=== PATIENT | male | born 1940 | race Caucasian/White ===

== ENCOUNTER → 2016-09-11 | Outpatient (CLI) | payer OTHER ==
[~2016-09-11] MED LIST: ASPI81 PO; NITR.4 SL; PERC5TAB12 PO; PROS5TAB2 PO; PROT40TA PO; ROSU20 PO; TERA5CAP3 PO; VENL37.585 PO
[2016-09-11 10:37] LABS: BLOOD GAS CARBOXYHEMOGLOBIN 1.4 % (0-4); BLOOD GAS HCO3 27 mmol/L (22-26); BLOOD GAS METHEMOGLOBIN 1.1 % (0-2); BLOOD GAS O2 HGB SATURATION 94 % (90-100); BLOOD GAS OXYGEN CONTENT 18.2 Vol % (12.0-20.0); BLOOD GAS PCO2 43 mmHG (38-42); BLOOD GAS PO2 82 mmHG (61-120); BLOOD GAS TOTAL HGB 13.7 G/DL (12.0-16.0); CRITICAL VALUE NO; DRAW SITE RT RADIAL; FIO2 21 %; NUMBER OF ARTERIAL PUNCTURES 1; TEMP CORR TO 98.6; ULNAR PULSE PRESENT
[2016-09-11 10:38] LABS: STAT NO
--- NOTE | 2016-09-12 08:54 | RSPPFT ---
DATE OF PROCEDURE: 09/11/16 COMMENTS: Spirometry shows FVC of 3.9 at 111% of predicted, FEV1 of 2.3 at 86%, FEV1/FVC ratio is decreased. Flow is decreased at FEF 25, FEF 50, FEF 75 and FEF 25-75. There is no response after bronchodilator treatment. Lung volumes shows residual volume is normal. TLC is normal. Diffusion capacity is decreased. Flow volume loop indicates an obstructive pattern. Room air arterial blood gases show pH of 7.42, PCO2 of 43, PO2 of 82, BiCarb of 27, O2 Saturation at 98%. IMPRESSION: 1. Mild small airways obstructive lung disease. 2. No response after bronchodilator treatment. 3. Lung volumes are normal. 4. Decreased diffusion capacity. 5. Blood gases show normal oxygenation.
== END ==
LOC: PHRSP 10:06
PROVIDERS: ATTEND Specialist
DX: R06.00 Dyspnea, unspecified (principal)
CPT/HCPCS: 36600; 82805; 94060; 94726; 94729

== ENCOUNTER 2017-11-08 06:52 | Observation (INO) ==
[2017-11-08 07:11] LABS: Baso # (Auto) 0.1 th/mm3 (0.0-0.2); Baso % (Auto) 1.2 % (0.0-2.0); Eos # (Auto) 0.3 th/mm3 (0.0-0.4); Eos % (Auto) 3.4 % (0.0-4.0); Hematocrit 42.3 % (39.0-51.0); Hemoglobin 14.3 gm/dL (13.0-17.0); Lymph # (Auto) 1.6 th/mm3 (1.0-4.8); Mean Corpuscular HGB Conc 33.8 % (32.0-36.0); Mean Corpuscular Hemoglobin 32.8 pg (27.0-34.0); Mean Corpuscular Volume 97.3 fL (80.0-100.0); Mono # (Auto) 0.6 th/mm3 (0.0-0.9); Mono % (Auto) 7.2 % (0.0-8.0); Neut % (Auto) 69.2 % (16.0-70.0); Platelet Count 171 th/mm3 (150-450); Red Blood Count 4.35 mil/mm3 (4.50-5.90); Red Cell Distribution Width 12.6 % (11.6-17.2); White Blood Count 8.6 th/mm3 (4.0-11.0)
[2017-11-08 07:12] VITALS: O2SAT 97
--- NOTE | 2017-11-08 07:17 | ED ---
HPI General Chief Complaint: Chest Pain Stated Complaint: Lft shoulder pain going down arm Time Seen by Provider: 11/08/17 07:01 Source: patient, family, RN notes reviewed and old records reviewed Mode of arrival: ambulatory Limitations: no limitations History of Present Illness HPI narrative: 76-year-old male states that over the past couple days he has been feeling tired and run down and he developed pain in his chest that went down his left arm. He took an aspirin prior to arrival. He states he could not find his nitroglycerin. He states the pain is now resolved. He states Dr. Matthews is now his regroover. He states his last stress test he thinks was within the last year. He states he does have cardiac stents. He denies other concurrent complaints. Quality is pressure. Severity is currently resolved. He denies specific modifying factors. complaint: chest pain STEMI Alert: No Related Data Home Medications Medication Instructions Recorded Confirmed dabigatran etexilate [Pradaxa] 0 mg PO BID 11/08/17 finasteride 0 mg PO DAILY 11/08/17 pantoprazole 0 mg PO DAILY 11/08/17 rosuvastatin [Crestor] 0 mg PO DAILY 11/08/17 terazosin 0 mg PO DAILY 11/08/17 Allergies Allergy/AdvReac Type Severity Reaction Status Date / Time No Known Allergies Allergy Unverified 11/08/17 07:15 Review of Systems ROS: all other systems reviewed are negative [facility] Medical History Medical History Depression (Acute) Elevated cholesterol (Acute) GERD (gastroesophageal reflux disease) (Acute) Surgical History Surgical History History of intravascular stent placement (Acute) History of prostate surgery (Acute) Hx of hernia repair (Acute) Social History Social History Substance History: No History of Abuse Smoking Status: Former smoker Tobacco Type: Cigarettes How Often Do You Have a Drink Containing Alcohol: Never Immunization History Tetanus Immunization: Unsure Hx Influenza Vaccine This Season: Yes Exam Narrative Exam Narrative: GENERAL: 76-year-old male in no apparent distress SKIN: Focused skin assessment warm/dry. HEAD: Atraumatic. Normocephalic. EYES: Pupils equal and round. No scleral icterus. No injection or drainage. ENT: No nasal bleeding or discharge. Mucous membranes pink and moist. NECK: Trachea midline. No JVD. CARDIOVASCULAR: Regular rate and rhythm. RESPIRATORY: No accessory muscle use. Clear to auscultation. Breath sounds equal bilaterally. GASTROINTESTINAL: Abdomen soft, non-tender, nondistended. Hepatic and splenic margins not palpable. MUSCULOSKELETAL: No obvious deformities. No clubbing. No cyanosis. No edema. NEUROLOGICAL: Awake and alert. No obvious cranial nerve deficits. Motor grossly within normal limits. Normal speech. PSYCHIATRIC: Appropriate mood and affect; insight and judgment normal. Course Reevaluation(s) Reevaluation #1: patient updated and agrees to admit Consultations Consultation #1: dr lopez requests to discuss with cardiology Consultation #2: dr owen states ok to admit to [facility], last stress wa 1.5 years ago Consultation #3: dr lopez agrees to admit Initial Documented Vital Signs Pulse Rate 84 11/08/17 07:10 Pulse Oximetry 97 11/08/17 07:10 Last Documented Vital Signs Pulse Rate 59 L 11/08/17 08:01 Respiratory Rate 16 11/08/17 08:01 Blood Pressure 144/77 H 11/08/17 08:01 Pulse Oximetry 97 11/08/17 08:01 Medical Decision Making [facility] Narrative Medical decision making narrative: We will check blood work, chest x-ray, EKG and reevaluate. Currently pain-free Medical Screen Exam Complete: Yes Emergency Medical Condition: Yes Differential Diagnosis Differential Diagnosis: Cardiac, gastritis, musculoskeletal Medical Records Medical records reviewed: Yes I reviewed the patient's medical records. 2007 right coronary stent times [address] nicole Lab Data Lab results reviewed: Yes I reviewed the patient's lab results. Result diagrams: 11/08/17 06:55 11/08/17 06:55 Lab Results 11/08/17 11/08/17 11/08/17 Range/Units 06:55 06:55 06:55 CBC w Diff Auto diff final WBC 8.6 (4.0-11.0) th/mm3 RBC 4.35 L (4.50-5.90) mil/mm3 Hgb 14.3 (13.0-17.0) gm/dL Hct 42.3 (39.0-51.0) % MCV 97.3 (80.0-100.0) fL MCH 32.8 (27.0-34.0) pg MCHC 33.8 (32.0-36.0) % RDW 12.6 (11.6-17.2) % Plt Count 171 (150-450) th/mm3 MPV 8.0 (7.0-11.0) fL Neut % (Auto) 69.2 (16.0-70.0) % Lymph % (Auto) 19.0 (9.0-44.0) % [place] % (Auto) 7.2 (0.0-8.0) % Eos % (Auto) 3.4 (0.0-4.0) % Baso % (Auto) 1.2 (0.0-2.0) % Neut # (Auto) 6.0 (1.8-7.7) th/mm3 Lymph # (Auto) 1.6 (1.0-4.8) th/mm3 [place] # (Auto) 0.6 (0.0-0.9) th/mm3 Eos # (Auto) 0.3 (0.0-0.4) th/mm3 Baso # (Auto) 0.1 (0.0-0.2) th/mm3 WBC Differential . Differential Comment . Sodium 137 (136-145) meq/L Potassium 3.8 (3.5-5.1) meq/L Chloride 103 (98-107) meq/L Carbon Dioxide 27.6 (21.0-32.0) meq/L Anion Gap 6 (5-15) meq/L BUN 14 (7-18) mg/dL Creatinine 1.30 (0.60-1.30) mg/dL Estimated GFR 54 L (>89) mL/min Random Glucose 124 H (74-106) mg/dL Calcium 8.4 L (8.5-10.1) mg/dL Magnesium 2.0 (1.5-2.5) mg/dL Total Bilirubin 0.4 (0.2-1.0) mg/dL Direct Bilirubin 0.1 (0.0-0.2) mg/dL Indirect Bilirubin 0.3 (0.0-0.8) mg/dL AST 19 (15-37) U/L ALT 19 (12-78) U/L Alkaline Phosphatase 59 (45-117) U/L Total Creatine Kinase 99 (39-308) U/L Troponin I Less than 0.02 L (0.02-0.05) ng/mL Total Protein 7.7 (6.4-8.2) g/dL Albumin 3.9 (3.4-5.0) g/dL Imaging Data Attestation: I personally reviewed and interpreted this imaging study as follows : Radiologist's impression: Chest X-Ray 11/08/17 06:59 CONCLUSION: Negative for an acute process. Discharge Plan Discharge Disposition Patient Disposition: 30 Still Patient Discharge Details Diagnosis: Chest pain Physicians Team ED Provider: Gisselle Banegas Primary Care Provider: Do Constance Mann Attending Provider: Kenney Lopez Status ED Status: Admitted Observation Patient
[2017-11-08 07:21] LABS: Chloride 103 meq/L (98-107); Potassium 3.8 meq/L (3.5-5.1); Sodium 137 meq/L (136-145)
[2017-11-08 07:25] LABS: Calcium 8.4 mg/dL (8.5-10.1)
[2017-11-08 07:26] LABS: Anion Gap 6 meq/L (5-15); Blood Urea Nitrogen 14 mg/dL (7-18); Carbon Dioxide 27.6 meq/L (21.0-32.0); Glucose,Random 124 mg/dL (74-106)
[2017-11-08 07:29] LABS: Glomerular Filtration Rate 54 mL/min (>89)
[2017-11-08 07:34] LABS: Creatine Kinase 99 U/L (39-308)
--- NOTE | 2017-11-08 07:45 | XR ---
EXAM DATE: 11/08/2017 7:24 AM EDT AGE/SEX: 76 years / Male INDICATIONS: . Left side chest pain with left arm pain today CLINICAL DATA: This is the patient's initial encounter. Patient reports that signs and symptoms have been present for 1 day and indicates a pain score of 4/10. MEDICAL/SURGICAL HISTORY: Chronic obstructive pulmonary disease. . Cardiac stent COMPARISON: [facility] [place], CHEST PA & LAT, 04/17/2011. . FINDINGS: PA and lateral views of the chest demonstrate the lungs to be symmetrically aerated without evidence of mass, infiltrate or effusion. The cardiomediastinal contours are unremarkable. Degenerative change s about both AC joints. CONCLUSION: Negative for an acute process. Electronically signed by: Dion Cohn MD 11/08/2017 7:44 AM EDT
[2017-11-08 07:46] LABS: Albumin 3.9 g/dL (3.4-5.0)
[2017-11-08 07:51] LABS: Total Protein 7.7 g/dL (6.4-8.2)
[2017-11-08 08:02] VITALS: RESP 16
[2017-11-08] MEDS ORDERED: Morphine Inj 4 MG/ML Vial IV.PUSH PRN (08:17)
[2017-11-08] MEDS ORDERED: Acetaminophen 500 MG Tablet PO PRN (08:17)
[2017-11-08] MEDS ORDERED: Aspirin 325 MG Tablet PO SCH (09:00)
[2017-11-08] MEDS ORDERED: Pantoprazole Sodium 20 MG DR Tablet PO SCH (09:00)
[2017-11-08] MEDS ORDERED: FINASTERIDE 1 MG PO SCH (09:00)
--- NOTE | 2017-11-08 11:14 | P.HP ---
History of Present Illness Primary Care Physician: Do Constance Mann Chief Complaint: Left arm pain History of Present Illness: This is a very pleasant 76-year-old male patient with a known medical history of GERD, hypertension and hyperlipidemia presented to the ED with complaints of left arm pain. Patient states that this morning when he was using the bathroom he was sitting on the toilet and developed a left arm pain that radiated up his left neck, was characteristically sharp in nature and lasted roughly 40 seconds and went away on its own without any known aggravating or alleviating factors. He does admit to associated hand numbness and tingling. He denies any associated nausea, vomiting, sweating or shortness of breath. He denies ever having this type of sensation before. All symptoms have resolved upon assessment today. He does state he follows with Dr. Rojas, cardiology in the outpatient setting. He does state that his last stress test was 2-1/2 months ago which was reportedly negative. He does have history of CO and cardiac stents, these were placed over 5 years ago. He also had an echocardiogram 2 months ago which was reportedly negative as well. Patient states that his GERD symptoms have been worsening over the past couple weeks. He does take Protonix scheduled outpatient. He admits to increasing belching and flatus. Denies any new changes to his medicines. He denies any recent illness including fever, chills, cough, headache, chest pain, abdominal pain, nausea, vomiting, diarrhea or dysuria. He does follow closely with PCP. Also follows with gastroenterology, patient did undergo an EGD and colonoscopy roughly a year ago and at that time a dilation was done. Patient has not had any problems since that time. - Diagnosis (1) Chest pain Review of Systems All other systems reviewed negative except as stated in HPI [facility] - History History Provided By: Patient - Medical History Medical History: Medical History (Last Reviewed 11/08/17 @ 13:43 by Evangelina Braga) Depression Elevated cholesterol GERD (gastroesophageal reflux disease) - Surgical History Surgical History: Surgical History (Last Reviewed 11/08/17 @ 13:43 by Evangelina Braga) History of intravascular stent placement History of prostate surgery Hx of hernia repair - Family History Family History: Family History (Last Updated 11/08/17 @ 13:43 by Evangelina Braga) Other Cardiovascular disease - Tobacco History Second Hand Smoke Exposure: No Tobacco Use In Past 30 Days: No Smoking Status: Former smoker Tobacco Type: Cigarettes - Alcohol History How Often Do You Have a Drink Containing Alcohol: Never - Substance Use History Substance History: No History of Abuse - Immunization History Tetanus Immunization: Unsure Hx Influenza Vaccine This Season: Yes Medications and Allergies Active Medications: Active Medications Acetaminophen (Tylenol) 500 mg PO Q4H PRN PRN Reason: HEADACHE Hydrocodone Bitart/Acetaminophen (Chestnut 7.5/325) 1 tab PO Q4H PRN PRN Reason: PAIN SCALE 1 TO 7 Aspirin (Aspirin) 325 mg PO DAILY [facility] Last Admin: 11/08/17 10:57 Dose: Not Given Atorvastatin Calcium (Lipitor) 10 mg PO DAILY [facility] Dabigatran (Pradaxa) 150 mg PO BID [facility] Morphine Sulfate (Morphine Inj) 2 mg IV.PUSH Q4H PRN PRN Reason: PAIN SCALE 8 TO 10 Nitroglycerin (Nitrostat Sl) 0.4 mg SL Q5M PRN PRN Reason: CHEST PAIN Ondansetron HCl (Zofran Inj) 4 mg IV.PUSH Q6H PRN PRN Reason: NAUSEA Pantoprazole Sodium (Protonix) 20 mg PO DAILY [facility] Patient Own Medication (Patient Own Medication) 1 each PO DAILY [facility] Sodium Chloride (Ns Flush) 2 ml IV.FLUSH UNSCH PRN PRN Reason: FLUSH AFTER USING IV ACCESS Sodium Chloride (Ns Flush) 2 ml IV.FLUSH BID [facility] Last Admin: 11/08/17 10:57 Dose: Not Given Sodium Chloride (Ns Flush) 2 ml IV.FLUSH PRN PRN PRN Reason: FLUSH AFTER USING IV ACCESS Terazosin HCl (Hytrin) 1 mg PO DAILY [facility] Allergies Allergy/AdvReac Type Severity Reaction Status Date / Time No Known Allergies Allergy Unverified 11/08/17 07:15 Home Medications Medication Instructions Recorded Confirmed Type aspirin 81 mg PO DAILY 11/08/17 11/08/17 History dabigatran etexilate [Pradaxa] 0 mg PO BID 11/08/17 History finasteride 0 mg PO DAILY 11/08/17 History pantoprazole 0 mg PO DAILY 11/08/17 History rosuvastatin [Crestor] 0 mg PO DAILY 11/08/17 History terazosin 0 mg PO DAILY 11/08/17 History Exam Vital signs: Vital Signs 11/08/17 07:10 11/08/17 07:12 11/08/17 08:01 Pulse Rate 84 59 L Respiratory Rate 16 Blood Pressure 144/77 H Pulse Oximetry 97 97 97 11/08/17 09:00 Pulse Rate 81 Respiratory Rate Blood Pressure Pulse Oximetry 97 Intake & Output 11/07/17 11/08/17 11/08/17 18:59 06:59 18:59 Weight 88.6 kg Other: Date of Last Bowel Movement 11/07/17 Weight On Admission 88.6 kg Narrative: GENERAL: Well-developed, well-nourished patient in [facility]. SKIN: Warm and dry. No rash. Multiple tattoos. HEAD: Normocephalic. Atraumatic. EYES: Pupils equal and round. No scleral icterus. No injection or drainage. ENT: No nasal bleeding or discharge. Mucous membranes pink and moist. NECK: Supple. Trachea midline. CARDIOVASCULAR: Regular rate and rhythm. S1, S2 noted. No murmur appreciated. Chest pain to palpation. RESPIRATORY: No accessory muscle use. Clear to auscultation. Breath sounds equal bilaterally. GASTROINTESTINAL: Abdomen soft, non-tender, nondistended. Normoactive bowel sounds x4. MUSCULOSKELETAL: No obvious deformities. Extremities without clubbing, cyanosis , or edema. NEUROLOGICAL: Awake and alert. No obvious cranial nerve deficits. Motor grossly within normal limits. 5/5 muscle strength in bilateral upper and lower extremities. Normal speech. PSYCHIATRIC: Appropriate mood and affect; insight and judgment normal. Results - Labs CBC & Chem 7: 11/08/17 06:55 11/08/17 06:55 Labs: Laboratory Results - last 24 hr 11/08/17 11/08/17 11/08/17 06:55 06:55 06:55 CBC w Diff Auto diff final WBC 8.6 RBC 4.35 L Hgb 14.3 Hct 42.3 MCV 97.3 MCH 32.8 MCHC 33.8 RDW 12.6 Plt Count 171 MPV 8.0 Neut % (Auto) 69.2 Lymph % (Auto) 19.0 [place] % (Auto) 7.2 Eos % (Auto) 3.4 Baso % (Auto) 1.2 Neut # (Auto) 6.0 Lymph # (Auto) 1.6 [place] # (Auto) 0.6 Eos # (Auto) 0.3 Baso # (Auto) 0.1 WBC Differential . Differential Comment . Sodium 137 Potassium 3.8 Chloride 103 Carbon Dioxide 27.6 Anion Gap 6 BUN 14 Creatinine 1.30 Estimated GFR 54 L Random Glucose 124 H Calcium 8.4 L Magnesium 2.0 Total Bilirubin 0.4 Direct Bilirubin 0.1 Indirect Bilirubin 0.3 AST 19 ALT 19 Alkaline Phosphatase 59 Total Creatine Kinase 99 Troponin I Less than 0.02 L Total Protein 7.7 Albumin 3.9 - Imaging Impressions Chest X-Ray 11/08/17 06:59 CONCLUSION: Negative for an acute process. Caprini VTE Risk Assessment Caprini VTE Risk Assessment: Moderate/High Risk (score >= 2) Caprini Risk Assessment Model: Point Value = 1 Point Value = 2 Point Value = 3 Point Value = 5 Age 41-60 Minor surgery BMI > 25 kg/m2 Swollen legs Varicose veins or History of unexplained or recurrent spontaneous Oral contraceptives or hormone replacement Sepsis (< 1 month) Serious lung disease, including pneumonia (< 1 month) Abnormal pulmonary function Acute myocardial infarction Congestive heart failure (< 1 month) History of inflammatory bowel disease Medical patient at bed rest Age 61-74 Arthroscopic surgery Major open surgery (> 45 min) Laparoscopic surgery (> 45 min) Malignancy Confined to bed (> 72 hours) Immobilizing plaster cast Central venous access Age >= 75 History of VTE Family history of VTE Factor V Leiden Prothrombin [id number] Lupus anticoagulant Anticardiolipin antibodies Elevated serum homocysteine Heparin-induced thrombocytopenia Other congenital or acquired thrombophilia Stroke (< 1 month) Elective arthroplasty Hip, pelvis, or leg fracture Acute spinal cord injury (< 1 month) Prophylaxis Regimen: Total Risk Factor Score Risk Level Prophylaxis Regimen 0-1 Low Early ambulation 2 Moderate Order ONE of the following: *Sequential Compression Device (SCD) *Heparin 5000 units SQ BID 3-4 Higher Order ONE of the following medications: *Heparin 5000 units SQ TID *Enoxaparin/Lovenox 40 mg SQ daily (WT < 150 kg, CrCl > 30 mL/min) *Enoxaparin/Lovenox 30 mg SQ daily (WT < 150 kg, CrCl > 10-29 mL/min) *Enoxaparin/Lovenox 30 mg SQ BID (WT < 150 kg, CrCl > 30 mL/min) AND/OR *Sequential Compression Device (SCD) 5 or more Highest Order ONE of the following medications: *Heparin 5000 units SQ TID (Preferred with Epidurals) *Enoxaparin/Lovenox 40 mg SQ daily (WT < 150 kg, CrCl > 30 mL/min) *Enoxaparin/Lovenox 30 mg SQ daily (WT < 150 kg, CrCl > 10-29 mL/min) *Enoxaparin/Lovenox 30 mg SQ BID (WT < 150 kg, CrCl > 30 mL/min) AND *Sequential Compression Device (SCD) Assessment and Plan - Assessment (1) Chest pain Code(s): R07.9 - Chest pain, unspecified Status: Acute - Plan This is a 76-year-old male patient with Chest pain, atypical -Patient has been admitted to the observation unit for ruling out ACS. Serial EKGs and serial enzymes have been ordered. Initial 2 troponins flat. Await third enzyme. -EKG reviewed, showing controlled heart rate and no ST changes to indicate any ischemia. -Patient placed on cardiac telemetry, monitor for any arrhythmias. No arrhythmias noted at this time. All symptoms have resolved. -Patient provided 1 dose of Maalox, assess response. -Chest x-ray reviewed, no acute cardiopulmonary disease noted. -Patient underwent a cardiac nuclear stress test with Dr. Matthews outpatient 2 and half months ago which was reportedly negative per patient. -He also had an echocardiogram done at that time which was insignificant. -Patient will be ruled out for ACS with serial EKGs and serial troponins. -If all negative patient will be discharged home to follow-up with PCP and cardiology. -Stable at this time and agreeable to plan. History of hyperlipidemia, chronic: We will continue home medication. GERD: Patient takes Protonix at home. Will continue. Given dose of Maalox. Assess response. DVT prophylaxis: SCDs. Ambulation.
[2017-11-08 11:46] LABS: Creatine Kinase 91 U/L (39-308)
[2017-11-08 12:28] VITALS: BP 158/71; PULSE 78; TEMP 97.1
--- NOTE | 2017-11-08 14:26 | ECG ---
Date Performed: 11/08/2017 Time Performed: 11:08:47 PTAGE: 76 years EKG: Sinus rhythm WITH OCCASIONAL SUPRAVENTRICULAR PREMATURE COMPLEXES POSSIBLE RIGHT VENTRICULAR CONDUCTION DELAY BOR DERLINE ECG Since the PREVIOUS TRACING , no significant change noted PREVIOUS TRACIN11/08/2017 06.58 DOCTOR: Gerardo Winter Interpretating Date/Time 11/08/2017 14:25:00
--- NOTE | 2017-11-08 14:27 | ECG ---
Date Performed: 11/08/2017 Time Performed: 06:58:59 PTAGE: 76 years EKG: Sinus rhythm WITH SINUS ARRHYTHMIA POSSIBLE RIGHT VENTRICULAR CONDUCTION DELAY BORDERLINE ECG Since the PREVIOUS TRACING , no significant change noted PREVIOUS TRACIN10/18/2008 20.30 DOCTOR: Gerardo Winter Interpretating Date/Time 11/08/2017 14:24:27
[2017-11-08 14:57] LABS: Creatine Kinase 79 U/L (39-308)
[2017-11-09] MEDS ORDERED: Pantoprazole Sodium 20 MG DR Tablet PO SCH (09:00)
--- NOTE | 2017-11-09 11:53 | ECG ---
Date Performed: 11/08/2017 Time Performed: 13:14:55 PTAGE: 76 years EKG: Sinus rhythm WITH OCCASIONAL SUPRAVENTRICULAR PREMATURE COMPLEXES POSSIBLE RIGHT VENTRICULAR CONDUCTION DELAY NON SPECIFIC T-WAVE ABNORMALITY BORDERLINE ECG Since the PREVIOUS TRACING , no significant change noted PREVIOUS TRACIN11/08/2017 11.08 DOCTOR: Gerardo Winter Interpretating Date/Time 11/09/2017 11:49:56
== END 2017-11-08 16:05 | disposition home or self-care (01) ==
LOC: PHED 06:52 → PHEDA 06:52 → PH3 09:17
PROVIDERS: ADMIT Internal Medicine; ATTEND Internal Medicine